=== PATIENT | male | born 1980 | race Caucasian/White ===

== ENCOUNTER 2024-07-21 17:31 | Emergency (ER) | payer OTHER, SELFPAY ==
[2024-07-21 17:37] VITALS: BP 132/84; PULSE 71; RESP 18; TEMP 36.9; O2SAT 99; BMI 26.7
--- NOTE | 2024-07-21 17:45 | XR_ITS ---
Examination: CT brain head without contrast. 2-D sagittal coronal reconstructions Date and time of exam:July 21, 2024 1845 hours INDICATIONS: Headaches nausea sensitivity to light beginning 6 days ago CTDI: vol (mGy):57.2 DLP: (mGycm):1302 Technique: Multiple CT axial sections of the brain have been obtained, 5 mm slice thickness. Contrast has not been administered. 2-D sagittal, coronal reconstructions have been obtained Low dose protocols were performed. One or more of the following dose reduction techniques were used; automated exposure control, adjustment of the mA and/or KV according to patient size, use of iterative reconstruction technique. Findings: No significant ventricular enlargement. Intra-axial or extra-axial hemorrhage density is not seen. No mass effect or midline shift Basal cisterns are not remarkable. Fourth ventricle is midline. Cranial vault intact. Impression: Negative for acute hemorrhage, mass effect or midline shift Clinical correlation advised and follow-up accordingly
[2024-07-21] MEDS: HYDROcodone/APAP 5/325 TABLET 1 TAB PO (18:05)
[2024-07-21] MEDS: KETOROLAC INJ 60 MG/2 ML VIAL 30 MG IM (18:06)
[2024-07-21] MEDS: DIAZEPAM 5 MG TABLET PO (18:10)
--- NOTE | 2024-07-21 18:56 | EDNOTE_ITS ---
ED Headache RME/HPI General Chief Complaint: Headache Stated Complaint: HEADACHE Time Seen by Provider: 07/21/24 17:36 Arrival date/time: 07/21/24 17:31 Limitations: no limitations RME / HPI RME / HPI Narrative: DR. ALCANTARA MAIN ED EVALUATION: 43 year male with a history of epilepsy presents to the Emergency Department with complaint of a headache onset 6 days ago. Patient states he started having a headache after having increased sinus pressure. He endorses taking numerous OTC medications without any improvement of symptoms. He states his headache has been increasing, rating it an 8 out of 10 in severity, so he came in for evaluation. He states his pain worsens when he bends over. Patient denies any neck stiffness, vomiting, diarrhea, vision changes, or other symptoms at this time. Denies any seizures. No known allergies. Onset (ago): day(s) Location: other Severity: moderate Severity scale (1-10): 8 Quality: aching Relieving factors: nothing Exacerbating factors: sitting/standing Context: recent URI Associated symptoms: nausea Other symptoms: other (Sinus pressure) Treatments prior to arrival: other (Sinus medications) Related Data Allergies Allergy/AdvReac Type Severity Reaction Status Date / Time No Known Allergies Allergy Verified 07/21/24 17:31 Review of Systems Review of Systems Systems Reviewed: All systems reviewed, normal except as documented Narrative Review of Systems: GEN: No fever, no chills, no weight loss EYES: No discharge, no visual changes, no pain HEENT: No ear pain, no congestion, no sore throat PULM: No shortness of breath, no cough, no congestion CV: No chest pain, no dyspnea on exertion, no palpitations GI: + nausea, no vomiting, no diarrhea, no pain, no constipation : No frequency, no urgency and no dysuria MUSC/SKEL: No joint pain, no back pain SKIN: No rash PSYCH: No hallucinations, no depression HEME/LYMPH: No easy bleeding or bruising tendencies NEURO: No weakness, + headache Past Medical History Past Medical History CARDIAC: Negative Cardiac Disorders RESPIRATORY: Negative Asthma GENITOURINARY: Negative Renal Disease ENDOCRINE: Negative Diabetes Mellitus Type 2 HEMATOLOGIC: Negative Sickle Cell Disease Social History SMOKING STATUS: Never smoker SUBSTANCE USE: does not use ALCOHOL: Never ED Exam Narrative Physical exam: Appears slightly uncomfortable. Not diaphoretic General Limitations: Present no limitations General appearance: Present alert and in no apparent distress Head Head exam: Present atraumatic Eye Eye exam: Present normal appearance, PERRL and other (Fundi sharp bilaterally) ENT ENT exam: Present normal exam, normal oropharynx and mucous membranes moist Neck Neck exam: Present normal inspection, full ROM and trachea midline Chest Chest inspection: Present normal inspection and symmetric chest wall rise Respiratory Respiratory exam: Present normal lung sounds bilaterally Cardiovascular Cardiovascular exam: Present regular rate, normal rhythm and normal heart sounds Abdominal Exam Abdominal exam: Present soft and normal bowel sounds Extremities Exam Extremities exam: Present normal inspection and full ROM Back Exam Back exam: Present normal inspection and full ROM Neurological Exam Neurological exam: Present alert, oriented X3, CN II-XII intact, normal gait and other (Normal finger-nose. No nystagmus. ); Absent motor sensory deficit Psychiatric Psychiatric exam: Present normal affect and normal mood Skin Skin exam: Present warm, dry, intact and normal color Course Course Course Narrative: OBSERVATION NOTE: The patient was placed in ED observation care at 07/22/24 at 0024 hours. The patient was placed in ED observation care because of pending MRI. The patients past medical history, social history, and family history were reviewed. The plan of care will include serial examinations. 0600: Care signed out to Dr. Pedraza (emergency physician). Past medical, surgical, social and family history reviewed. Vitals and home medications reviewed. Results and treatment plan discussed. They will assume the care of the patient at this time and will follow the patient, pending MRI of the head. At this time, observation has ended. Quality Measures none Orders Category Date Time Status CT Screening NOW Care 07/21/24 19:[address] Screening NOW Care 07/21/24 19:25 Active MRI Screening NOW Care 07/22/24 00:[address] angio carotid w head w Stat Exams 07/21/24 19:[address] head/brain w con Stat Exams 07/21/24 19:[address] head/brain wo con Stat Exams 07/21/24 17:45 Completed MR head/brain wo con Stat Exams 07/22/24 Ordered CBC Stat Lab 07/21/24 18:16 Completed CMP [Comprehensive Metabolic Panel] Stat Lab 07/21/24 18:16 Completed Acetaminophen Ivpb [Ofirmev Inj] Med 07/22/24 05:05 Ordered 1,000 mg in 100 ml IV Q6HR Diazepam [Valium] Med 07/21/24 17:36 Discontinued 5 mg PO X1 ONE DiphenhydrAMINE INJ [Benadryl Inj] Med 07/22/24 00:24 Discontinued 25 mg IVP X1 ONE HYDROcodone*/APAP 5/325 [Central 5/325] Med 07/21/24 17:36 Discontinued 1 tab PO X1 ONE Ketorolac Inj [Toradol Inj] Med 07/21/24 17:36 Discontinued 30 mg IM X1 ONE Metoclopramide Inj [Reglan Inj] Med 07/21/24 19:19 Discontinued 10 mg IVP X1 ONE Morphine Inj Med 07/21/24 19:13 Discontinued 4 mg IVP X1 ONE Ondansetron Inj [Zofran Inj] Med 07/21/24 19:20 Discontinued 4 mg IV X1 ONE Sodium Chloride 0.9% 1000 ml [Ns] 1,000 ml Med 07/21/24 19:19 Discontinued IV 999 mls/hr Sodium Chloride 0.9% 1000 ml [Ns] 1,000 ml Med 07/22/24 05:04 Active IV 999 mls/hr Reevaluation(s) Reevaluation #1: Patient is still endorsing a headache. Patient will need a MRI in the morning. Time: 00:24 Vital Signs Vital signs: Vital Signs Temperature 98.4 F 07/21/24 17:37 Pulse Rate 71 07/21/24 17:37 Respiratory Rate 18 07/21/24 17:37 Blood Pressure 132/84 H 07/21/24 17:37 Pulse Oximetry (%) 99 07/21/24 17:37 Oxygen Delivery Method Room Air 07/21/24 17:37 Headache MDM Narrative MDM Narrative:: Kady Mccormick am scribing for and in the presence of Dr. Alcantara. Patient data External records reviewed:: None (no previous visits ) Clinical information provided by:: patient Social determinants that could affect healthcare access:: none Patient has the following chronic illnesses:: Denies any PMHx, surgeries, daily medications, or known allergies. How is presenting disease/condition affected by chronic disease/condition?: no chronic disease Evaluation data The following diagnostics were reviewed and interpreted by me:: lab results and radiology exam(s) Lab and/or radiology exams considered but not ordered:: none Interpretation Summary: Procedure(s): CT head/brain wo con Accession Number(s): [id number] cc: Doreen (CARRIE),Stoney BUTLER; Noah Castillo MD; NO PRIMARY/FAMILY,PHYSICIAN~ Examination: CT brain head without contrast. 2-D sagittal coronal reconstructions Date and time of exam:July 21, 2024 1845 hours INDICATIONS: Headaches nausea sensitivity to light beginning 6 days ago CTDI: vol (mGy):57.2 DLP: (mGycm):1302 Technique: Multiple CT axial sections of the brain have been obtained, 5 mm slice thickness. Contrast has not been administered. 2-D sagittal, coronal reconstructions have been obtained Low dose protocols were performed. One or more of the following dose reduction techniques were used; automated exposure control, adjustment of the mA and/or KV according to patient size, use of iterative reconstruction technique. Findings: No significant ventricular enlargement. Intra-axial or extra-axial hemorrhage density is not seen. No mass effect or midline shift Basal cisterns are not remarkable. Fourth ventricle is midline. Cranial vault intact. Impression: Negative for acute hemorrhage, mass effect or midline shift Clinical correlation advised and follow-up accordingly Dictated By: Noah Castillo MD Procedure(s): CT head/brain w con Accession Number(s): [id number] cc: Noah Castillo MD; NO PRIMARY/FAMILY,PHYSICIAN; Lynda Alcantara MD~ Examination: CT brain head with intravenous contrast. 2-D sagittal reconstructions. 2-D coronal reconstructions. Date and time of exam:July 21, 2024 1934 hrs. Indications: Headache nausea sensitivity to light beginning 7 days ago, clinical diagnosis venous thrombosis CTDI: vol (mGy): 58.1 DLP: (mGycm):1218 Technique: Axial sections of the brain have been obtained. 5 mm slice thickness images have been obtained. Post intravenous administration 75 cc Isovue-370 Low dose protocols were performed. One or more of the following dose reduction techniques were used; automated exposure control, adjustment of the mA and/or KV according to patient size, use of iterative reconstruction technique. Findings: Ventricles are normal in size and configuration No mass effect upon the ventricular system Sagittal sinus is partly visualized and appears patent as well as internal cerebral vein and transverse sinuses No enhancing cerebellar or cerebral lesion Impression: No venous thrombus noted on this study MRA MRV post contrast follow-up would be preferable in assessing for vascular abnormalities Dictated By: Noah Castillo MD -- Procedure(s): CT angio carotid w head w Accession Number(s): [id number] cc: Noah Castillo MD; NO PRIMARY/FAMILY,PHYSICIAN; Lynda Alcantara MD~ Examination: CTA carotids with intravenous contrast CTA brain, head with intravenous contrast. 2-D sagittal, coronal reconstructions. 3-D reconstructions. Exam date and time: July 21, 2024 1935 hrs. Indications: Headaches nausea vomiting and light sensitivity beginning 7 days ago CTDI: vol (mGy) 11.1 DLP: (mGycm) 494 Technique: Multiple CTA axial brain, head carotid images post intravenous contrast injection 75 cc, Isovue-370. 2-D sagittal, coronal reconstructions. 3-D reconstructions, 3-D post processing including vascular maximum intensity projection images. Low dose protocols were performed. One or more of the following dose reduction techniques were used; automated exposure control, adjustment of the mA and/or KV according to patient size, use of iterative reconstruction technique. Findings: No significant stenoses common carotid arteries carotid bifurcations or internal carotid arteries Dominant left vertebral artery with no significant neck stenoses No cerebral large vessel arterial occlusions, thrombus, dissection or cerebral aneurysm No sagittal sinus transverse sinus or internal cerebral vein thrombus depicted Impression: No cerebral large vessel arterial occlusions, thrombus, dissection or cerebral aneurysm No venous thrombus is depicted If symptoms persist, recommend brain MRI MRA follow-up pre and postcontrast Dictated By: Noah Castillo MD Medications / Prescriptions Medications or Prescriptions considered but not ordered:: none Medication administrations:: Medication Administration History Sodium Chloride (Ns) 1,000 mls @ 999 mls/hr IV .Q1H1M ONE Stop: 07/22/24 06:04 Acetaminophen (Ofirmev Inj) 1,000 mg in 100 mls @ 250 mls/hr IV Q6HR CHERRY Stop: 07/22/24 18:23 Discontinued Medications Hydrocodone Bitart/Acetaminophen (Hydrocodone/Apap 5/325 Tablet) 1 tab PO X1 ONE Stop: 07/21/24 17:37 Last Admin: 07/21/24 18:05 Dose: 1 tab Documented By: CALVIN Diazepam (Diazepam 5 Mg Tablet) 5 mg PO X1 ONE Stop: 07/21/24 17:37 Last Admin: 07/21/24 18:10 Dose: 5 mg Documented By: CALVIN Diphenhydramine HCl (Diphenhydramine Inj 50 Mg/Ml Vial) 25 mg IVP X1 ONE Stop: 07/22/24 00:25 Last Admin: 07/22/24 01:41 Dose: 25 mg Documented By: MILLY Sodium Chloride (Ns) 1,000 mls @ 999 mls/hr IV .Q1H1M ONE Stop: 07/21/24 20:19 Last Infusion: 07/21/24 20:35 Dose: Infused Documented By: Admin: 07/21/24 19:32 Dose: 999 mls/hr Documented By: IVANIA Ketorolac Tromethamine (Ketorolac Inj 60 Mg/2 Ml Vial) 30 mg IM X1 ONE Stop: 07/21/24 17:37 Last Admin: 07/21/24 18:06 Dose: 30 mg Documented By: CALVIN Metoclopramide HCl (Metoclopramide Inj 5 Mg/Ml Vial 2 Ml) 10 mg IVP X1 ONE; Protocol Stop: 07/21/24 19:20 Last Admin: 07/21/24 19:59 Dose: 10 mg Documented By: IVANIA Morphine Sulfate (Morphine Sulf Inj 10 Mg/Ml Vial) 4 mg IVP X1 ONE Stop: 07/21/24 19:14 Last Admin: 07/21/24 19:27 Dose: 4 mg Documented By: IVANIA Ondansetron HCl (Ondansetron Inj 2 Mg/Ml Inj 2 Ml) 4 mg IV X1 ONE; Protocol Stop: 07/21/24 19:21 Last Admin: 07/21/24 19:59 Dose: 4 mg Documented By: IVANIA see above Consultations Consultation(s) initiated? (list below): No Diagnosis Differential diagnosis headache: migraine, subarachnoid hemorrhage, headache, sinusitis and other (sinus headache, atypical presentation of epilepsy, dehydration, electrolyte abnormality) Most likely diagnosis given after review of the tests above:: see below Admission Indicated Admission indicated?: not indicated Admission Request Was there a request for admission?: No Disposition Plan Disposition Plan: other (specify) (Signed out to Dr. Pedraza at 0600 pending MRI of the head/brain.) Discharge Plan Prescriptions/Referrals Referrals: No Primary/Family,Physician [Primary Care Provider] - In 1 week Problem List Clinical Impression: Headache Patient/Caregiver Discharge Instructions Print Language: Gabonese
[2024-07-21 18:57] LABS: Basophils % (Auto) 0 % (0-2.5); Eosinophils # (Auto) 0.1 Thou/mm3 (0.0-0.5); Eosinophils % (Auto) 2 % (0-10); Hematocrit 33.9 % (41.0-53.0); Hemoglobin 11.4 g/dL (13.5-16.0); Immature Granulocytes % (Auto) 1 % (0-0); Immature Granulocytes Auto 0.03 Thou/mm3 (0.00-0.00); Lymphocytes # (Auto) 1.5 Thou/mm3 (1.0-4.8); Lymphocytes % (Auto) 27 % (10-50); Mean Corpuscular HGB Conc 33.6 g/dl (31.0-37.0); Mean Corpuscular Hemoglobin 31.7 pg (25.0-35.0); Mean Corpuscular Volume 94 fL (80-100); Monocytes # (Auto) 0.6 Thou/mm3 (0.0-0.8); Monocytes % (Auto) 10 % (0-12); Neutrophils # (Auto) 3.4 Thou/mm3 (1.8-7.7); Neutrophils % (Auto) 60 % (37-80); Nucleated Red Blood Cell % 0 /100 WBC (0); Platelet Count 174 Thou/mm3 (140-440); RDW Standard Deviation 48.1 fL (35.1-43.9); White Blood Count 5.7 Thou/mm3 (3.8-10.6)
--- NOTE | 2024-07-21 19:21 | XR_ITS ---
Examination: CTA carotids with intravenous contrast CTA brain, head with intravenous contrast. 2-D sagittal, coronal reconstructions. 3-D reconstructions. Exam date and time: July 21, 2024 1935 hrs. Indications: Headaches nausea vomiting and light sensitivity beginning 7 days ago CTDI: vol (mGy) 11.1 DLP: (mGycm) 494 Technique: Multiple CTA axial brain, head carotid images post intravenous contrast injection 75 cc, Isovue-370. 2-D sagittal, coronal reconstructions. 3-D reconstructions, 3-D post processing including vascular maximum intensity projection images. Low dose protocols were performed. One or more of the following dose reduction techniques were used; automated exposure control, adjustment of the mA and/or KV according to patient size, use of iterative reconstruction technique. Findings: No significant stenoses common carotid arteries carotid bifurcations or internal carotid arteries Dominant left vertebral artery with no significant neck stenoses No cerebral large vessel arterial occlusions, thrombus, dissection or cerebral aneurysm No sagittal sinus transverse sinus or internal cerebral vein thrombus depicted Impression: No cerebral large vessel arterial occlusions, thrombus, dissection or cerebral aneurysm No venous thrombus is depicted If symptoms persist, recommend brain MRI MRA follow-up pre and postcontrast
--- NOTE | 2024-07-21 19:23 | XR_ITS ---
Examination: CT brain head with intravenous contrast. 2-D sagittal reconstructions. 2-D coronal reconstructions. Date and time of exam:July 21, 2024 1934 hrs. Indications: Headache nausea sensitivity to light beginning 7 days ago, clinical diagnosis venous thrombosis CTDI: vol (mGy): 58.1 DLP: (mGycm):1218 Technique: Axial sections of the brain have been obtained. 5 mm slice thickness images have been obtained. Post intravenous administration 75 cc Isovue-370 Low dose protocols were performed. One or more of the following dose reduction techniques were used; automated exposure control, adjustment of the mA and/or KV according to patient size, use of iterative reconstruction technique. Findings: Ventricles are normal in size and configuration No mass effect upon the ventricular system Sagittal sinus is partly visualized and appears patent as well as internal cerebral vein and transverse sinuses No enhancing cerebellar or cerebral lesion Impression: No venous thrombus noted on this study MRA MRV post contrast follow-up would be preferable in assessing for vascular abnormalities
[2024-07-21 19:27] LABS: Alanine Aminotransferase 34 U/L (10-49); Albumin, Serum 4.6 gm/dL (3.5-5.0); Albumin/Globulin Ratio 1.4 (1.2-2.2); Alkaline Phosphatase 133 U/L (46-116); Anion Gap 6 (7-16); Aspartate Amino Transferase 29 U/L (0-34); BUN/Creatinine Ratio 11 Ratio (12-20); Bilirubin,Total 0.9 mg/dL (0.3-1.2); Blood Urea Nitrogen 12 mg/dL (9-23); Calcium 9.2 mg/dL (8.3-10.6); Calcium (Corrected) 9.2 mg/dL (8.5-10.1); Carbon Dioxide 28.8 mMol/L (20.0-31.0); Chloride 104 mMol/L (98-107); Creatinine (Component) 1.1 mg/dL (0.6-1.3); Estimated Creatinine Clearance 104.6 mL/min (>60); Globulin 3.3 gm/dL (2.3-3.5); Glucose 80 mg/dL (74-106); Osmolality,Calculated 276 (275-295); Sodium 139 mMol/L (136-145); Total Protein 7.9 gm/dL (5.7-8.2); eGFR > 60 See Note
[2024-07-21] MEDS: MORPHINE SULF INJ 10 MG/ML VIAL 4 MG IVP (19:27)
[2024-07-21] MEDS: SODIUM CHLORIDE 0.9% 1000 ML 1,000 ML 999 ML IV (19:32)
[2024-07-21] MEDS: METOCLOPRAMIDE INJ 5 MG/ML VIAL 2 ML 10 MG IVP (19:59)
[2024-07-21] MEDS: ONDANSETRON INJ 2 MG/ML INJ 2 ML 4 MG IV (19:59)
[2024-07-21 22:50] VITALS: BP 130/81; PULSE 64; RESP 16; TEMP 36.9; O2SAT 98
--- NOTE | 2024-07-22 | XR_ITS ---
Examination: MRI brain without intravenous contrast. Date and time of exam: July 22, 2024 0738 hrs. Indications: Stabbing headaches behind the left eye beginning 7 days ago Technique: Multiple axial and sagittal images of the brain obtained. Siemens high-resolution 1.5 Lucinda short bore scanners utilized. Sagittal sections, T1-weighted, TR 500, TE 14, are performed. Axial sections proton-density and T2-weighted have been obtained. Inversion recovery axial images, TR 9, 260, TE 111, TI 2500. Diffusion weighted images, axial sections, TR 4800, TE 128, B value 1000 Axial sections, ADC map, TR 4800, TE 128 Findings: Enlargement of the sella turcica is not present. The optic chiasm and infundibular are not remarkable. Prepontine and interpeduncular cisterns are not enlarged. There is no localized enlargement of the medulla or eliceo. Fourth ventricle and cerebellar tonsils appear normal in position. No subacute area of hemorrhage density is seen. Mass in the cerebellopontine angle region is not evident. Globes symmetrical. Orbital musculature including medial lateral rectus muscles do not exhibit abnormality. Diffusion-weighted images demonstrate no focus of restricted diffusion. Increased white matter signal not seen Chronic ethmoid frontal sinusitis Mass effect upon the ventricular system is not identified. Impression: Negative for acute hemorrhage mass effect or midline shift No acute infarct No MR findings diagnostic for demyelinating disease Chronic ethmoid frontal sinusitis
[2024-07-22] MEDS: DiphenhydrAMINE INJ 50 MG/ML VIAL 25 MG IVP (01:41)
[2024-07-22 01:43] VITALS: BP 124/82; PULSE 59; RESP 18; O2SAT 100
--- NOTE | 2024-07-22 03:15 | PC.NURSE ---
PT TO WITH C/O HEADACHE FOR 6 DAYS AND INCREASE SINUS PRESSURE THAT IS NOT RELIEVED WITH OTC MEDICATIONS. PT STATES FIRST NOTED SYMPTOMS WHILE WORKING OUT AND HEADACHE GRUDUALLY WORSEN. PT HAS HX OF SZ AND IS COMPLIANT WITH MEDICATIONS. PT PLACED ON VITAL SIGN MONITORING. CALL LIGHT WITHIN REACH. PT CARE ONGOING.
[2024-07-22 03:50] VITALS: BP 166/77; PULSE 57; RESP 18; O2SAT 98
[2024-07-22] MEDS: SODIUM CHLORIDE 0.9% 1000 ML 1,000 ML 999 ML IV (05:36)
[2024-07-22] MEDS: ACETAMINOPHEN IVPB 1,000 MG/100 ML VIAL 250 MG IV (05:38)
[2024-07-22 06:04] VITALS: BP 124/78; PULSE 60; RESP 18; TEMP 37.1; O2SAT 100
--- NOTE | 2024-07-22 06:46 | PD.EDADDENDU ---
Emergency Room Addendum <Emma Mahan - Last Filed: 07/22/24 08:57> Addendum Narrative: 0600: Care assumed from Dr. Alcantara, the previous shift emergency physician. Past medical, surgical, social and family history reviewed. Vitals and home medications reviewed. I will assume the care of the patient at this time, pending MRI head/brain wo con. Please refer to the emergency department record for history and examination from initial visit.? Nursing notes reviewed by me. Vital signs reviewed by me. [place] medical records reviewed by me. Per EMR review, patient has no previous visits for review. 0835: I reviewed today's results with patient. Patient remains clinically stable throughout the emergency department visit. Patient is amenable to discharge with prescription for Medrol. Strict return precautions were outlined. Patient was discharged in stable condition. DISPOSITION: Home DIAGNOSIS: Headache, chronic ethmoidal sinusitis RADIOLOGY Ordering Physician: Lynda Alcantara MD Date of Service: 07/22/24 Procedure(s): MR head/brain wo con Accession Number(s): [id number] cc: Noah Castillo MD; NO PRIMARY/FAMILY,PHYSICIAN; Lynda Alcantara MD~ Examination: MRI brain without intravenous contrast. Date and time of exam: July 22, 2024 0738 hrs. Indications: Stabbing headaches behind the left eye beginning 7 days ago Technique: Multiple axial and sagittal images of the brain obtained. Siemens high-resolution 1.5 Lucinda short bore scanners utilized. Sagittal sections, T1-weighted, TR 500, TE 14, are performed. Axial sections proton-density and T2-weighted have been obtained. Inversion recovery axial images, TR 9, 260, TE 111, TI 2500. Diffusion weighted images, axial sections, TR 4800, TE 128, B value 1000 Axial sections, ADC map, TR 4800, TE 128 Findings: Enlargement of the sella turcica is not present. The optic chiasm and infundibular are not remarkable. Prepontine and interpeduncular cisterns are not enlarged. There is no localized enlargement of the medulla or eliceo. Fourth ventricle and cerebellar tonsils appear normal in position. No subacute area of hemorrhage density is seen. Mass in the cerebellopontine angle region is not evident. Globes symmetrical. Orbital musculature including medial lateral rectus muscles do not exhibit abnormality. Diffusion-weighted images demonstrate no focus of restricted diffusion. Increased white matter signal not seen Chronic ethmoid frontal sinusitis Mass effect upon the ventricular system is not identified. Impression: Negative for acute hemorrhage mass effect or midline shift No acute infarct No MR findings diagnostic for demyelinating disease Chronic ethmoid frontal sinusitis Dictated By: Noah Castillo MD Signed By: <Electronically signed by Noah Castillo MD in [place]>07/22/24 0813 <Malena Pedraza MD - Last Filed: 07/22/24 11:45> Addendum Narrative: 0600: Care assumed from Dr. Alcantara, the previous shift emergency physician. Past medical, surgical, social and family history reviewed. Vitals and home medications reviewed. I will assume the care of the patient at this time, pending MRI head/brain wo con. Please refer to the emergency department record for history and examination from initial visit.? Nursing notes reviewed by me. Vital signs reviewed by me. [place] medical records reviewed by me. Per EMR review, patient has no previous visits for review. 0835: I reviewed today's results with patient. Patient remains clinically stable throughout the emergency department visit. Still c/o persistent periorbital pain in the superior nasal area. Recommend steroid treatment for chronic ethmoid sinusitis. Solumedrol Iv ordered. Patient is amenable to discharge with prescription for Medrol. Strict return precautions were outlined. Patient was discharged in stable condition. DISPOSITION: Home DIAGNOSIS: Headache, chronic ethmoidal sinusitis RADIOLOGY Ordering Physician: Lynda Alcantara MD Date of Service: 07/22/24 Procedure(s): MR head/brain wo con Accession Number(s): [id number] cc: Noah Castillo MD; NO PRIMARY/FAMILY,PHYSICIAN; Lynda Alcantara MD~ Examination: MRI brain without intravenous contrast. Date and time of exam: July 22, 2024 0738 hrs. Indications: Stabbing headaches behind the left eye beginning 7 days ago Technique: Multiple axial and sagittal images of the brain obtained. Siemens high-resolution 1.5 Lucinda short bore scanners utilized. Sagittal sections, T1-weighted, TR 500, TE 14, are performed. Axial sections proton-density and T2-weighted have been obtained. Inversion recovery axial images, TR 9, 260, TE 111, TI 2500. Diffusion weighted images, axial sections, TR 4800, TE 128, B value 1000 Axial sections, ADC map, TR 4800, TE 128 Findings: Enlargement of the sella turcica is not present. The optic chiasm and infundibular are not remarkable. Prepontine and interpeduncular cisterns are not enlarged. There is no localized enlargement of the medulla or eliceo. Fourth ventricle and cerebellar tonsils appear normal in position. No subacute area of hemorrhage density is seen. Mass in the cerebellopontine angle region is not evident. Globes symmetrical. Orbital musculature including medial lateral rectus muscles do not exhibit abnormality. Diffusion-weighted images demonstrate no focus of restricted diffusion. Increased white matter signal not seen Chronic ethmoid frontal sinusitis Mass effect upon the ventricular system is not identified. Impression: Negative for acute hemorrhage mass effect or midline shift No acute infarct No MR findings diagnostic for demyelinating disease Chronic ethmoid frontal sinusitis Dictated By: Noah Castillo MD Signed By: <Electronically signed by Noah Castillo MD in [place]>07/22/24 0813
[2024-07-22 07:26] VITALS: BP 133/86; PULSE 64; RESP 16; TEMP 36.8; O2SAT 98
--- NOTE | 2024-07-22 07:36 | PC.NURSE ---
Report received from pm nurse, patient [place] in [place], no apparent distress noted, patient to er with c/o unilateral headache behind right eye x 8 days, patient states pain unreleived with pain medication and is sensitive to light, patient rates pain 10/10 at this time and states after receiving Tylenol IV it helped for a few minutes but came back skin is warm dry and pink, patient denies n/vomiting. Patient awaiting MRI exam, VSS, [facility].
--- NOTE | 2024-07-22 07:37 | PC.NURSE ---
wind tunnel technician here to take patient for Exam, patient refusing to go in wheelchair, patient states I'll just walk, I'm not being pushed .
[2024-07-22] MEDS: MethylPREDNISolone SOD SUCC 62.5 MG/ML 2ML VIAL 125 MG IVP (08:36)
== END 2024-07-22 08:43 | disposition home or self-care (01) ==
PROVIDERS: Nurse Practitioner Primary Care; Emergency Provider Emergency Medicine
DX: J32.8 Other chronic sinusitis (principal)
CPT/HCPCS: 36415; 70450; 70460; 70470; 70496; 70498; 70551; 80053; 85025; 87400; 87811; 96361; 96365; 96372; 96375; 99285; A4649; J0131; J1200; J1885; J2270; J2405; J2765; J2919; J7030; Q9967; A9270